=== PATIENT | female | born 1995 | race Caucasian/White ===

== ENCOUNTER 2017-12-25 18:32 | Emergency (ER) | payer MEDICAID, OTHER ==
[~2017-12-25] VITALS: Ht 162.6 cm; Wt 69.9 kg
[2017-12-25 18:42] VITALS: BP 127/61
--- NOTE | 2017-12-25 18:49 | NUR ---
pt sent out to the lobby to wait for the next available bed
--- NOTE | 2017-12-25 19:50 | NUR ---
22/F CAME IN ED WITH FAMILY/FRIEND. PT IS SPEAKS SIGN-LANGUAGE, PREFERS FAMILY/FRIEND TO TRANSLATE, COMMUNICATING THROUGH WRITTEN NOTES. PT REPORTS 8/10 LOWER ABD PAIN, X2 DAYS. PT REPORTS "SHE FEELS INSIDE AIR, WHEN SHE SITS SHE FEELS PAIN." PT REPORTS N/V. LBM TODAY, DENIES CONSTIPATION OR DIARRHEA. ABD SOFT ROUND TENDER ON BL LOWER ABD, BS HYPOACTIVE X4. ER MD MADE AWARE.
--- NOTE | 2017-12-25 19:50 | NUR ---
PT TAKEN TO BED 7
--- NOTE | 2017-12-25 20:59 | NUR ---
Dr. Shah evaluating patient at bedside.
[2017-12-25] MEDS ORDERED: NACL 0.9% 1,000 ML IV SCH (21:02)
[2017-12-25] MEDS ORDERED: KETOROLAC 30 MG/ML VIAL IVP ONE (21:05)
[2017-12-25 21:25] LABS: BASOPHILS # (AUTO) 0.1 K/uL (0.00-0.22); BASOPHILS % (AUTO) 0.6 % (0.0-2.0); EOSINOPHILS # (AUTO) 0.1 K/uL (0-0.4); EOSINOPHILS % (AUTO) 0.9 % (0.0-4.0); HEMOGLOBIN 14.6 g/dL (12.0-16.0); LYMPHOCYTES # (AUTO) 2.3 K/uL (2.5-16.5); LYMPHOCYTES % (AUTO) 19.9 % (20.5-51.1); MEAN CORPUSCULAR HEMOGLOBIN 29 pg (27-31); MEAN CORPUSCULAR HGB CONC 34 g/dL (33-37); MEAN CORPUSCULAR VOLUME 85.9 fL (80-94); MONOCYTES # (AUTO) 0.6 K/uL (0.8-1.0); MONOCYTES % (AUTO) 4.8 % (1.7-9.3); NEUTROPHILS # (AUTO) 8.6 K/uL (1.8-7.7); NEUTROPHILS % (AUTO) 73.8 % (42.2-75.2); PLATELET COUNT (AUTO) 247 K/uL (140-450); RED BLOOD CELL COUNT(AUTO) 5.01 MIL/uL (4.20-5.40); RED CELL DISTRIBUTION WIDTH 13.1 % (11.6-13.7); WHITE BLOOD COUNT (AUTO) 11.7 K/uL (4.8-10.8)
[2017-12-25 21:29] LABS: APPEARANCE,URINE SL CLOUDY (CLEAR); BILIRUBIN,URINE NEGATIVE (NEGATIVE); BLOOD, URINE 3+ (NEGATIVE); COLOR,URINE YELLOW (YELLOW); LEUKOCYTE ESTERASE ,URINE NEGATIVE (NEGATIVE); NITRITE, URINE NEGATIVE (NEGATIVE); PH,URINE 5.5 (5.0-9.0); UGLUCOSE NEGATIVE (NEGATIVE)
[2017-12-25 21:32] LABS: ANION GAP 8.4 (8-16); CARBON DIOXIDE 28.5 mmol/L (21-32); CREATININE 0.7 mg/dL (0.6-1.3); POTASSIUM 3.9 mmol/L (3.5-5.1)
[2017-12-25 21:36] LABS: RBC,URINE TOO NUMEROUS TO COUN /HPF (0-5); WBC,URINE 0-5 (RARE) /HPF (0-5)
[2017-12-25 21:38] LABS: TOTAL BILIRUBIN 0.3 mg/dL (0.0-1.0)
--- NOTE | 2017-12-25 21:40 | NUR ---
ADVERTISING MATERIAL DISTRIBUTOR SERVICE SET UP, #[id number]
--- NOTE | 2017-12-25 21:41 | NUR ---
Dr. Shah re-evaluating patient at bedside. 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
--- NOTE | 2017-12-25 21:48 | NUR ---
Aristides beyer in [facility] - 12/25/17 at 2148 by ZEINAB PT TAKEN TO BED 7
--- NOTE | 2017-12-25 21:48 | NUR ---
PT TAKEN TO CT
--- NOTE | 2017-12-25 22:00 | NUR ---
PT RETURN FROM CT
--- NOTE | 2017-12-25 22:34 | NUR ---
PT RESTING IN BED, PT REPORTS 8/10 LOWER ABD PAIN WITH SLIGHT IMPROVEMENT AFTER PAIN MED. VSS. ALL NEEDS MET AT THIS TIME.
[2017-12-25 23:35] VITALS: BP 108/65
--- NOTE | 2017-12-26 00:34 | NUR ---
Patient discharged with v/s stable. Written and verbal after care instructions given and explained. Patient alert, oriented and verbalized understanding of instructions. Ambulatory with steady gait. All questions addressed prior to discharge. ID band removed. Patient advised to follow up with PMD. Rx of MOTRIN, ZOFRAN, NORCO 5/325 given. Patient educated on indication of medication including possible reaction and side effects. Opportunity to ask questions provided and answered.
== END 2017-12-26 00:34 | disposition home or self-care (01) ==
LOC: MED 18:32
DX: R10.30 Lower abdominal pain, unspecified (principal); R11.0 Nausea
CPT/HCPCS: 36415; 74176; 80053; 81001; 81025; 83690; 85025; 96374; 99285; J1885